=== PATIENT | female | born 1965 | race Caucasian/White ===

== ENCOUNTER 2019-12-15 12:56 | Emergency (ER) | payer OTHER ==
[~2019-12-15] VITALS: Ht 172.7 cm; Wt 90.7 kg
[2019-12-15 13:19] LABS: *BILIRUBIN,URIN NEGATIVE (NEGATIVE); *CLARITY,URINE CLEAR (CLEAR); *COLOR,URINE YELLOW (YELLOW); *KETONES,URINE NEGATIVE (NEGATIVE); *UROBILINOGEN,URINE 0.2 E.U./dl (NORMAL); LEUKOCYTE ESTERASE ,URINE 1+ (NEGATIVE); NITRITE, URINE NEGATIVE (NEGATIVE); PH,URINE 6.5 (5.0-8.0); UGLUCOSE NEGATIVE (NEGATIVE)
[2019-12-15 13:21] LABS: *BLOOD, URINE TRACE (NEGATIVE)
[2019-12-15 13:35] LABS: BACTERIA,URINE NONE SEEN /HPF (NONE SEEN)
[2019-12-15 13:36] LABS: MUCUS,URINE FEW /LPF (0-FEW); SQUAMOUS EPITHELIAL CELL,UR MODERATE /HPF (NONE SEEN)
--- NOTE | 2019-12-15 13:55 | NUR ---
Patient is AOx4, speaking in complete sentences, speech is clear. Able to follow /comprehend directions. Gait is stable. No cardiovascular distress noted. Rate/rhythm regular. No CP. No respiratory distress noted. Respirations even , unlabored, symmetrical chest rise. No adventitious sounds noted. Chief complaint: Patient comes in with c/o ABDPAIN, pain 8/10 THAT VARIES. -NVD, BOWEL SOUNDS present and normoactive in all four quadrants. - ABD distention. Denies Fever/Chills. No recent travel. No pertinent medical history/NKDA. -ETOH -recreational drug use/NONSMOKER. LBM yesterday. Continent of bowel and bladder function. SAFETY Patient in bed, bed in lowest position. Siderails up x 2. Call light within reach. Will continue to monitor accordingly
[2019-12-15 13:59] LABS: BASOPHILS % (AUTO) 0.4 % (0.0-2.0); EOSINOPHILS # (AUTO) 0.1 K/uL (0.0-0.7); EOSINOPHILS % (AUTO) 1.7 % (0.0-7.0); HEMOGLOBIN 13.6 g/dL (10.9-14.3); LYMPHOCYTES # (AUTO) 2.5 K/uL (20.0-40.0); LYMPHOCYTES % (AUTO) 31.3 % (20.5-51.5); MEAN CORPUSCULAR HEMOGLOBIN 30.4 uug (24.7-32.8); MEAN CORPUSCULAR HGB CONC 34 g/dL (32.3-35.6); MEAN CORPUSCULAR VOLUME 89.3 fL (75.5-95.3); MONOCYTES # (AUTO) 0.6 K/uL (2.0-10.0); MONOCYTES % (AUTO) 7.3 % (0.0-11.0); NEUTROPHILS # (AUTO) 4.7 K/uL (1.8-8.9); NEUTROPHILS % (AUTO) 59.3 % (38.5-71.5); PLATELET COUNT (AUTO) 269 K/uL (179-408); RED BLOOD CELL COUNT(AUTO) 4.48 MIL/uL (3.63-4.92)
--- NOTE | 2019-12-15 14:04 | NUR ---
PT BROUGHT TO CT [facility] BY [facility] VIA ROLF NEUMANN +Dilan HENNESSY G20 HEPLOCK INTACT
[2019-12-15 14:29] LABS: CREATININE 0.9 mg/dL (0.6-1.3); POTASSIUM 3.8 mmol/L (3.5-5.1)
[2019-12-15 14:41] LABS: BILIRUBIN,DIRECT 0.1 mg/dL (0.0-0.2); BILIRUBIN,TOTAL 0.3 mg/dL (0.2-1.0); TOTAL PROTEIN, SERUM 7.5 g/dL (6.4-8.2)
--- NOTE | 2019-12-15 15:50 | NUR ---
Patient discharged to home in stable condition. Written and verbal after care instructions given. Patient verbalizes understanding of instructions. Stressed follow up or return to ER for worsening s/s. ambulatory w/ stable gait all belongings w/ pt IV Dc, dressed
[2019-12-15 16:02] VITALS: BP 113/74
[2019-12-16 07:58] LABS: CANCER AG, 125 7.3 U/mL (0.0-38.1)
== END 2019-12-15 16:03 | disposition home or self-care (01) ==
LOC: ER 12:56 → EDBD 12:56 → ER 16:03
DX: R10.9 Unspecified abdominal pain (principal); R10.13 Epigastric pain; R31.29 Other microscopic hematuria; N83.291 Other ovarian cyst, right side; N28.1 Cyst of kidney, acquired; R00.1 Bradycardia, unspecified; Z90.49 Acquired absence of other specified parts of digestive tract; K57.30 Diverticulosis of large intestine without perforation or abscess without bleeding
CPT/HCPCS: 36415; 82378; 83690; 85025; 86301; 87086; 93005; A4663